=== PATIENT | male | born 1995 | race Native Hawaiian/Other Pacific Islander ===

== ENCOUNTER 2022-07-05 15:28 | Emergency (ER) | payer SELFPAY ==
[2022-07-05 17:11] VITALS: BP 137/94; PULSE 82; O2SAT 97
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
== END 2022-07-05 20:04 | disposition home or self-care (01) ==
LOC: ED 15:28
DX: S00.83XA Contusion of other part of head, initial encounter (principal); V54.6XXA Passenger in pick-up truck or van injured in collision with heavy transport vehicle or bus in traffic accident, initial encounter; Z28.310 Unvaccinated for COVID-19; Z72.0 Tobacco use
CPT/HCPCS: 70486; 99282